=== PATIENT | male | born 1970 | race Caucasian/White ===

== ENCOUNTER 2019-09-23 08:27 | Emergency (ER) | payer SELFPAY ==
[~2019-09-23] VITALS: Ht 170.2 cm; Wt 91.0 kg
[2019-09-23] MEDS ORDERED: NIFEDIPINE 10MG CAPSULE PO ONE (09:00)
[2019-09-23] MEDS ORDERED: LOSARTAN POTASSIUM 25 MG TABLET PO ONE (09:00)
[2019-09-23 09:17] LABS: BASOPHILS % 0.3 % (0.0-2.0); EOSINOPHILS % 1.4 % (0.0-5.0); HEMATOCRIT. 50.7 % (42.0-52.0); HEMOGLOBIN. 17.6 g/dL (14.0-18.0); LYMPHOCYTES % 15.3 % (20.0-50.0); MEAN CORPUSCULAR HEMOGLOBIN 31.6 pg (28.0-32.0); MEAN CORPUSCULAR VOLUME 91.1 fL (80.0-94.0); MEAN PLATELET VOLUME 8.4 fl (7.4-10.4); MONOCYTES % 5.7 % (2.0-8.0); NEUTROPHILS % 77.3 % (40.0-76.0); PLATELET 254 x1000/uL (130-400); RED BLOOD CELL COUNT 5.56 mill/uL (4.7-6.1); RED CELL DISTRIBUTION WIDTH 13.2 % (11.6-14.6)
[2019-09-23 09:27] LABS: CHLORIDE 107 mEq/L (98-107)
[2019-09-23] MEDS ORDERED: METOCLOPRAMIDE HCL 10MG TABLET ONE (10:26)
[2019-09-23] MEDS ORDERED: IBUPROFEN 800MG TABLET ONE (10:27)
[2019-09-23] MEDS ORDERED: METOCLOPRAMIDE HCL 10MG TABLET PO ONE (10:30)
[2019-09-23] MEDS ORDERED: IBUPROFEN 600MG TABLET PO ONE (10:30)
[2019-09-23 10:40] VITALS: BP 145/77
== END 2019-09-23 10:43 | disposition home or self-care (01) ==
LOC: ER 08:27
DX: I10 Essential (primary) hypertension (principal); R51 Headache; F17.200 Nicotine dependence, unspecified, uncomplicated
CPT/HCPCS: 36415; 80053; 85025; 85610; 93005; 99284; J8597; Z7610